=== PATIENT | female | born 2000 | race African-American/Black ===

== ENCOUNTER 2025-04-23 06:24 | Inpatient (IN) ==
[~2025-04-23 06:24] MED LIST: XYLOCAINE 2 % (PLAIN) ONE
[2025-04-23] MEDS: LR 1,000 ML IV 1,000 ML IV ONE (06:34)
[2025-04-23] MEDS: PEPCID 20 MG VIAL ONE (06:34)
[2025-04-23] MEDS: TORADOL 30 MG VIAL ONE (06:36)
[2025-04-23] MEDS: MARCAINE SPINAL ONE (06:36)
[2025-04-23] MEDS: REGLAN INJ 10 MG VIAL ONE (06:36)
[2025-04-23] MEDS: ZOFRAN INJ 4 MG VIAL ONE (06:36)
[2025-04-23] MEDS: PITOCIN ONE (06:36)
[2025-04-23] MEDS: DIPRIVAN VIAL 20 ML ONE (06:37)
[2025-04-23] MEDS: OFIRMEV IV 1000 MG VIAL 1,000 MG/100 ML VIAL IV ONE (06:37)
[2025-04-23] MEDS: LR 1,000 ML IV 2,000 ML IV PRN (06:45)
[2025-04-23] MEDS: PEPCID 20 MG VIAL IVP PRN (06:59)
[2025-04-23] MEDS: REGLAN INJ 10 MG VIAL IVP PRN (06:59)
[2025-04-23] MEDS: ZOFRAN INJ 4 MG VIAL IVP PRN (07:00)
[2025-04-23] MEDS ORDERED: ZOFRAN INJ 4 MG VIAL IVP PRN ×2 (07:04→09:21)
[2025-04-23] MEDS ORDERED: BARHEMSYS INJ IVP PRN (07:04)
[2025-04-23] MEDS ORDERED: DILAUDID INJ IVP PRN (07:04)
[2025-04-23] MEDS ORDERED: BENADRYL INJ 50 MG VIAL IVP PRN ×2 (07:04→09:21)
[2025-04-23] MEDS: NS 100 ML IV 100 ML ONE (07:05)
[2025-04-23] MEDS: ANCEF VIAL 1 GRAM IVP ONE (07:05)
[2025-04-23] MEDS: LR 1,000 ML IV 1,000 ML IV SCH (07:09)
[2025-04-23] MEDS: ANCEF VIAL 1 GRAM IV PRN (07:15)
[2025-04-23] MEDS: EPHEDRINE SULFATE INJ IVP PRN (07:36)
[2025-04-23] MEDS: EPHEDRINE SULFATE INJ ONE (07:36)
[2025-04-23] MEDS: TORADOL 30 MG VIAL IVP PRN (08:05)
[2025-04-23] MEDS ORDERED: XYLOCAINE 2 % (PLAIN) PRN (08:05)
[2025-04-23] MEDS: DIPRIVAN VIAL 180 ML IVP PRN (08:05)
[2025-04-23] MEDS: PITOCIN IVP PRN (08:14)
[2025-04-23] MEDS: OFIRMEV IV 1000 MG VIAL 1,000 MG/100 ML VIAL IV PRN (08:25)
[2025-04-23] MEDS ORDERED: REGLAN INJ 10 MG VIAL IVP PRN (09:21)
[2025-04-23] MEDS: PRENATAL PLUS PO SCH (11:53)
[2025-04-23] MEDS: OXYTOCIN 20 UNIT/1,000 ML-NS 20 UNIT/1,000 ML PLAST..BAG IV SCH (11:53)
[2025-04-23] MEDS ORDERED: ADACEL or BOOSTRIX TDaP VACCINE IM ONE (12:26)
[2025-04-23] MEDS: PERCOCET TAB 5/325 MG PO PRN ×2 (12:28→19:04)
[2025-04-23] MEDS: ADACEL or BOOSTRIX TDaP VACCINE IM ONE (12:36)
[2025-04-23] MEDS: FERROUS GLUCONATE PO SCH (17:22)
[2025-04-24] MEDS: TORADOL 30 MG VIAL IVP PRN (04:00)
[2025-04-24] MEDS: MOTRIN TAB 800 MG PO PRN (08:13)
[2025-04-24] MEDS: COLACE CAP 100 MG PO SCH (08:14)
[2025-04-24] MEDS: BACTROBAN TOPICAL OINT TOP SCH (14:30)
[2025-04-24 23:17] VITALS: RESP 21
[2025-04-25] MEDS: MYLICON TAB 80 MG CHEW PO PRN (01:17)
[2025-04-25 04:40] VITALS: O2SAT 99
[2025-04-25 08:26] VITALS: BP 136/65; PULSE 80; TEMP 97.6
[2025-04-25] MEDS: DIFLUCAN PO SCH (09:43)
[2025-04-25] MEDS: DEPO-PROVERA CONTRACEPTIVE INJ IM ONE (09:43)
== END 2025-04-25 11:10 | disposition home or self-care (01) | DRG 787 ==
LOC: LD 06:24 → MED/SURG 09:21
PROVIDERS: ADMIT Specialist; ATTEND Specialist
DX: D50.8 Other iron deficiency anemias; O99.02 Anemia complicating childbirth; N85.8 Other specified noninflammatory disorders of uterus; Z3A.39 39 weeks gestation of pregnancy; Z01.818 Encounter for other preprocedural examination; O98.313 Other infections with a predominantly sexual mode of transmission complicating pregnancy, third trimester; Z37.0 Single live birth; O34.211 Maternal care for low transverse scar from previous cesarean delivery